=== PATIENT | female | born 1930 | race Caucasian/White ===

== ENCOUNTER 2016-11-09 10:57 | Outpatient (CLI) ==
[2014-07-03 21:13] VITALS: BMI 23.4
[2016-11-09 13:58] LABS: BASOPHILS # (AUTO) 0.1 K/uL (0-0.2); BASOPHILS % (AUTO) 1.8 % (0.0-3.0); EOSINOPHILS # (AUTO) 0.1 K/ul (0.0-0.7); HEMATOCRIT 36.7 % (37.0-47.0); IMMATURE GRANULOCYTE % (AUTO) 0.5 % (0.0-5.0); LYMPHOCYTES # (AUTO) 1.2 K/uL (0.60-3.4); LYMPHOCYTES % (AUTO) 26.8 (10.0-50.0); MEAN CORPUSCULAR HEMOGLOBIN 30.2 pg (27.0-31.0); MEAN CORPUSCULAR HGB CONC 32.7 (31.8-35.4); MEAN CORPUSCULAR VOLUME 92.2 fl (81.0-99.0); MONOCYTES # (AUTO) 0.4 K/uL (0.4-2.0); MONOCYTES % (AUTO) 9.3 (0-10); NEUTROPHILS # (AUTO) 2.6 K/ul (2.0-6.9); NEUTROPHILS % (AUTO) 59.6; PLATELET COUNT 274 10^3/uL (140-440); RED BLOOD COUNT 3.98 10^6/ul (4.20-5.40); WHITE BLOOD COUNT 4.41 K/ul (4.6-10.2)
[2016-11-09 14:02] LABS: BILIRUBIN,URINE Negative (NEGATIVE); KETONES,URINE Negative (NEGATIVE); LEUKOCYTE ESTERASE ,URINE 1+ (NEGATIVE); NITRITE,URINE Negative (NEGATIVE); PH,URINE 8.5 (5-9); PROTEIN,URINE Negative (NEGATIVE); URINE, BLOOD Trace-intact (NEGATIVE)
[2016-11-09 14:04] LABS: ADD URINE MICROSCOPIC YES
[2016-11-09 14:10] LABS: BACTERIA,URINE TRACE (NOT PRESENT)
[2016-11-09 15:19] LABS: ALBUMIN 3.7 g/dL (3.4-5.0); ALBUMIN/GLOBULIN RATIO 1.23; ANION GAP 12.9; BILIRUBIN,TOTAL 0.69 mg/dL (0.00-1.20); BUN/CREATININE RATIO 11.22; CALCIUM 9.1 mg/dL (8.2-10.2); CREATININE 0.98 mg/dL (0.60-1.30); POTASSIUM 3.9 mmol/L (3.5-5.10); TOTAL PROTEIN 6.7 g/dL (5.8-8.1)
== END 2016-11-09 10:58 | disposition home or self-care (01) ==
LOC: LAB 10:57
PROVIDERS: ATTEND General Practice
DX: I48.91 Unspecified atrial fibrillation (principal); E78.5 Hyperlipidemia, unspecified; D64.9 Anemia, unspecified; R31.29 Other microscopic hematuria; Z79.899 Other long term (current) drug therapy
CPT/HCPCS: 36415; 80053; 80061; 81001; 85025; 87086

== ENCOUNTER 2017-11-12 12:52 | Outpatient (CLI) ==
[2014-07-03 21:13] VITALS: BMI 23.4
== END 2017-11-12 12:53 | disposition home or self-care (01) ==
LOC: FCC-LAB 12:52
PROVIDERS: ATTEND General Practice
DX: I48.91 Unspecified atrial fibrillation (principal); E78.5 Hyperlipidemia, unspecified; Z79.899 Other long term (current) drug therapy
CPT/HCPCS: 36415; 80053; 80061; 81001; 85025; 87086

== ENCOUNTER 2018-03-29 10:54 | Outpatient (CLI) ==
[2014-07-03 21:13] VITALS: BMI 23.4
== END 2018-03-29 10:55 | disposition home or self-care (01) ==
LOC: FCC-LAB 10:54
PROVIDERS: ATTEND General Practice
DX: E78.5 Hyperlipidemia, unspecified (principal); I48.91 Unspecified atrial fibrillation; D64.9 Anemia, unspecified; Z79.899 Other long term (current) drug therapy
CPT/HCPCS: 36415; 80053; 80061; 81001; 85025

== ENCOUNTER 2018-10-04 11:09 | Outpatient (CLI) ==
[2014-07-03 21:13] VITALS: BMI 23.4
== END 2018-10-04 11:10 | disposition home or self-care (01) ==
LOC: RHC-LAB 11:09
PROVIDERS: ATTEND General Practice
DX: Z00.00 Encounter for general adult medical examination without abnormal findings (principal); D64.9 Anemia, unspecified; E78.5 Hyperlipidemia, unspecified; Z79.899 Other long term (current) drug therapy
CPT/HCPCS: 36415; 80053; 80061; 81001; 84443; 85025

== ENCOUNTER 2018-10-10 09:16 | Outpatient (CLI) ==
[2014-07-03 21:13] VITALS: BMI 23.4
--- NOTE | 2018-10-11 09:50 | MAMMO ---
EXAM: Digital screening mammogram with tomosynthesis HISTORY: Screening COMPARISON: 04/12/2016 FINDINGS: Digital MLO and CC views of the right and left breast were performed. Tomosynthesis was performed. Computer aided detection utilized. There are scattered fibroglandular densities. There are benign appearing bilateral calcifications. There is no evidence for mass, asymmetry, distortion, or suspicious calcifications in either breast. IMPRESSION: 1. No evidence of malignancy in the right or left breast. 2. Annual screening mammogram is recommended in one year. BIRADS category 2, benign
== END 2018-10-10 09:17 | disposition home or self-care (01) ==
LOC: RAD 09:16
PROVIDERS: ATTEND General Practice
DX: Z12.31 Encounter for screening mammogram for malignant neoplasm of breast (principal)

== ENCOUNTER 2019-04-21 12:52 | Inpatient (IN) ==
[2019-04-21] MEDS ORDERED: DUONEB NEB STA (14:19)
[2019-04-21] MEDS ORDERED: LEVAQUIN 500 MG/100 ML D5W 500 MG/100 ML BAG IV STA (14:35)
--- NOTE | 2019-04-21 15:38 | CT ---
Exam: CT of the chest without intravenous contrast. Comparison: 07/04/2014. Reason for exam: Pneumonia. FINDINGS: Consolidation in the right mid lung with air bronchograms and surrounding ground-glass [place] cities with nodularity. Ground-glass nodularity is seen in the left hilar region. There is nodular appearing ground-glass in both left and right lung base is measuring up to 1.7 cm as seen on coronal image number 59. No pneumothorax is seen. Left basilar atelectasis/pneumonia with a small effusion. Image interpretation is limited by the lack of intravenous contrast. The heart is not enlarged. The aorta is normal in course and caliber. Old granulomas disease is seen within the mediastinum. Atherosclerotic disease within the aorta and distal arterial vasculature including the coronary vesse ls. Small hiatal hernia. No suspicious appearing osteoblastic or osteolytic lesion. Impression: 1. Partially evaluated ground-glass nodularity and both lung bases and the left hilar region. These findings can be seen with infection, inflammation, and neoplasia. Follow-up imaging is recommended. 2. Consolidation in the right middle lobe with air bronchograms. Findings can be seen with lobar co llapse, infection, inflammation, and neoplasia. Recommend clinical correlation. 3. Small hiatal hernia
--- NOTE | 2019-04-21 17:15 | ED.PDOC ---
General ED Provider: Dr. ELIZA ABDALLA Chief Complaint: Respiratory Complaint Stated Complaint: pneumonia right lung Time Seen by Physician: 13:00 Mode of Arrival: Wheelchair Information Source: Patient Exam Limitations: No limitations Primary Care Provider: REHAN CURIELBRYN [facility] Nursing and Triage Documentation Reviewed and Agree: Yes Does patient meet sepsis criteria?: Yes If yes, has appropriate treatment been initiated?: Yes System Inflammatory Response Syndrome: Temp 101F or Greater and Pulse >90 BPM Sepsis Protocol: For patient's 13 years and over: Temp is 96.8 and below OR 101 and greater Pulse >90 BPM Resp >20/minute Acutely Altered Mental Status Are patient's symptoms suggestive of a new infection, such as: -Pneumonia -Skin, Soft Tissue -Endocarditis -UTI -Bone, Joint Infection -Implantable Device -Acute Abdominal Infection -Wound Infection -Meningitis -Blood Stream Catheter Infection -Unknown Respiratory Complaint Exam Respiratory Complaint/Exam Onset/Duration: 1 day Symptoms Are: Still present Timing: Constant Initial Severity: Mild Current Severity: Mild Location: Nose, Throat and Chest Character: Reports Non-productive cough and Dry cough Aggravating: Reports None Alleviating: Reports None Related Surgical History: Reports None Pulmonary Embolism Risk Factors: None and Bedrest Cardiac Risk Factors: Reports None Pseudomonas Risk Factors: Reports None Status Asthmaticus Risk Factors: Reports None Home Oxygen Use: No Recent Stress Test: No Recent Echo/LV Function: No Current Antibiotic Use: No Current Asthma Medication Use: No Respiratory Distress: None Inadequate Respiratory Effort: No Dysphagia Present: No Stridor Present: No JVD Present: No Accessory Muscle Use: No Retractions: Not Present Diminished Breath Sounds: No Sinus Tenderness: None Grunting Respirations: No Kussmaul Respirations: No Differential Diagnoses: Foreign body, Asthma, CHF, Pulmonary Edema, COPD Exacerbation, Pneumonia, Bronchitis, URI and Aspiration Review of Systems Review Of Systems Constitutional: Reports Malaise, Weakness and Loss of appetite Eyes: Reports No symptoms Ears, Nose, Mouth, Throat: Reports No symptoms Respiratory: Reports No symptoms and Cough Cardiac: Reports No symptoms GI: Reports No symptoms : Reports No symptoms Musculoskeletal: Reports No symptoms Skin: Reports No symptoms Neurological: Reports No symptoms Endocrine: Reports No symptoms Hematologic/Lymphatic: Reports No symptoms All Other Systems: Reviewed and Negative [facility] Medical History A-fib Cataract Hemorrhoids Family History 33 FATHER Cerebrovascular accident BROTHER Lung cancer BROTHER Cerebrovascular accident Physical Exam Physical Exam Appearance: Well-appearing, No pain distress and Well-nourished Eyes: RAY, EOMI and Conjunctiva clear ENT: Ears normal, Nose normal and Oropharynx normal Respiratory: Airway patent, Breath sounds diminished (right lung), Respirations nonlabored and Rhonchi Cardiovascular: RRR, Pulses normal, No rub and No murmur GI/: Soft, Nontender, No masses, Bowel sounds normal and No Organomegaly Musculoskeletal: Normal strength, ROM intact, No edema and No calf tenderness Skin: Warm, Dry and Normal color Neurological: Sensation intact, Motor intact, Reflexes intact, Cranial nerves intact, Alert and Oriented Psychiatric: Affect appropriate and Mood appropriate Interpretation Radiology Interpretation Radiology Interpretation By: Radiologist Exam Interpreted: CT Scan Xray Comments: pneumonia vs neoplastic process Nurse Rn [place] Rate: Tachy Rhythm: Sinus EKG Interpretation Rate: Tachy Rhythm: Sinus Ectopy: PVCs [place]: NL ST Segment: Normal Re-Evaluation Re-Evaluation Time of Re-Evaluation: 15:00 Status: Improved Vital Signs Stable: Yes Pain Level: 0 Appearance: NAD Lungs: Clear Skin: Warm and Dry Neuro: Alert and Oriented X3 CV: RRR Re-Evaluation Time of Re-Evaluation: 17:08 Status: Improved Vital Signs Stable: Yes Pain Level: 0 Appearance: NAD Skin: Warm and Dry Neuro: Alert and Oriented X3 CV: RRR Additional Comments: no acute resp event while in the E/D Physician Notification Case Discussed Physician Notified: PMD Time of Notification: 17:10 (ADMITT TO [facility] WITH PNEUMONIA) Critical Care Note Critical Care Note Total Time (mins): 0 Course Course Hematology/Chemistry: 04/21/19 14:32 04/21/19 14:32 Orders, Labs, Meds: Lab Review 04/21/19 04/21/19 04/21/19 14:31 14:32 14:32 WBC 14.93 H RBC 3.79 L Hgb 11.4 L Hct 33.9 L MCV 89.4 MCH 30.1 MCHC 33.6 RDW Coeff of Hannah 13.0 Plt Count 238 Immature Gran % (Auto) 1.1 Neut % (Auto) 88.2 Lymph % (Auto) 4.3 L [place] % (Auto) 6.2 Eos % (Auto) 0.0 Baso % (Auto) 0.2 Immature Gran # (Auto) 0.2 Neut # (Auto) 13.2 H Lymph # (Auto) 0.6 [place] # (Auto) 0.9 Eos # (Auto) 0.0 Baso # (Auto) 0.0 Puncture Site Rbrach O2 Saturation 93.0 L ABG pH 7.451 H ABG pCO2 30.9 L ABG pO2 62.0 L ABG HCO3 21.5 L ABG Total CO2 22 ABG Base Excess -2 FiO2 % 21.0 Sodium 131.5 L Potassium 3.74 Chloride 100.4 Carbon Dioxide 23.1 Anion Gap 11.74 BUN 16.5 Creatinine 0.85 Estimated GFR (MDRD) 63.00 BUN/Creatinine Ratio 19.41 Glucose 122.2 H Lactic Acid Calcium 8.72 Total Bilirubin 1.03 AST 23.5 ALT 12.8 Alkaline Phosphatase 86.0 Total Protein 7.13 Albumin 3.94 Globulin 3.19 Albumin/Globulin Ratio 1.23 Procalcitonin Urine Color Urine Clarity Urine pH Ur Specific [place] Urine Protein Urine Glucose (UA) Urine Ketones Urine Blood Urine Nitrite Urine Bilirubin Urine Urobilinogen Ur Leukocyte Esterase Urine Microscopic RBC Urine Microscopic WBC Ur Squamous Epith Cells Urine Bacteria Granular Casts 04/21/19 04/21/19 04/21/19 14:32 14:32 14:55 WBC RBC Hgb Hct MCV MCH MCHC RDW Coeff of Hannah Plt Count Immature Gran % (Auto) Neut % (Auto) Lymph % (Auto) [place] % (Auto) Eos % (Auto) Baso % (Auto) Immature Gran # (Auto) Neut # (Auto) Lymph # (Auto) [place] # (Auto) Eos # (Auto) Baso # (Auto) Puncture Site O2 Saturation ABG pH ABG pCO2 ABG pO2 ABG HCO3 ABG Total CO2 ABG Base Excess FiO2 % Sodium Potassium Chloride Carbon Dioxide Anion Gap BUN Creatinine Estimated GFR (MDRD) BUN/Creatinine Ratio Glucose Lactic Acid 0.68 L Calcium Total Bilirubin AST ALT Alkaline Phosphatase Total Protein Albumin Globulin Albumin/Globulin Ratio Procalcitonin 0.62 Urine Color Yellow Urine Clarity Clear Urine pH 6.0 Ur Specific [place] 1.025 Urine Protein 2+ Urine Glucose (UA) Negative Urine Ketones 2+ Urine Blood 2+ Urine Nitrite Negative Urine Bilirubin Negative Urine Urobilinogen 1.0 Ur Leukocyte Esterase Negative Urine Microscopic RBC 0-2 Urine Microscopic WBC 5-10 Ur Squamous Epith Cells Not present Urine Bacteria 1+ Granular Casts 0-2 Orders Category Date Time Status ABG DRAW REQUEST Stat CARDIO 04/21/19 14:31 Completed EKG-(ED ONLY) Stat CARDIO 04/21/19 14:21 Completed NEBULIZER TREATMENT Stat CARDIO 04/21/19 14:19 Completed ED APPLY O2 .ONCE EMERGENCY 04/21/19 14:16 Active ED UNIVERSITY LIBRARIAN APPLIED .ONCE EMERGENCY 04/21/19 14:16 Active ABG Stat LAB 04/21/19 14:31 Completed BLOOD CULTURE Stat LAB 04/21/19 15:20 Received CBC W/ AUTO DIFF Stat LAB 04/21/19 14:32 Completed COMPREHENSIVE METABOLIC PANEL Stat LAB 04/21/19 14:32 Completed LACTIC ACID Stat LAB 04/21/19 14:32 Completed PROCALCITONIN Stat LAB 04/21/19 14:32 Completed URINALYSIS C & S IF INDICATED Stat LAB 04/21/19 14:55 Completed URINE CULTURE Stat LAB 04/21/19 15:52 Received Ipratropium/Albuterol Neb [Duoneb] MEDS 04/21/19 14:19 Discontinued 3 ml NEB ONCE STA Levofloxacin/D5w [Levaquin 500 mg/100 ml D5w] MEDS 04/21/19 14:35 Discontinued 500 mg in [address] CHEST W/O CONTRAST Stat RADS 04/21/19 14:31 Completed Medications Discontinued Medications Generic Name Dose Route Start Last Admin Trade Name Freq PRN Reason Stop Dose Admin Albuterol/Ipratropium 3 ml 04/21/19 14:19 04/21/19 14:39 Duoneb NEB 04/21/19 14:20 3 ml ONCE STA Administration Levofloxacin/Dextrose 500 mg in 100 mls @ 100 mls/hr 04/21/19 14:35 04/21/19 15:32 Levaquin 500 Mg/100 Ml D5w IV 04/21/19 15:34 100 mls/hr ONCE STA Administration Vital Signs: Temp Pulse Resp BP Pulse Ox 04/21/19 12:53 101.7 F H 122 H 22 154/71 H 91 L Discharge Plan Discharge Patient Disposition: ADMITTED INPATIENT ED Provider: ELIZA ABDALLA Condition: Good
[2019-04-21] MEDS ORDERED: SODIUM CHLORIDE 1,000 ML IV SCH (17:30)
[2019-04-21] MEDS ORDERED: DUONEB NEB SCH ×2 (18:00→20:00)
[2019-04-21] MEDS: TUSSIONEX PO PRN (19:21)
[2019-04-21 20:14] VITALS: BMI 22.4
[2019-04-21] MEDS ORDERED: INFUVITE ADULT 10 ML in D5%-1/2NS-KCL 20 MEQ/L IV SOL 1,000 ML IV SCH (22:00)
[2019-04-21] MEDS ORDERED: INFUVITE ADULT IV ONE (22:46)
[2019-04-21] MEDS: MUCINEX PO SCH (23:03)
[2019-04-22] MEDS: INFUVITE ADULT 10 ML in D5%-1/2NS-KCL 20 MEQ/L IV SOL 1,000 ML IV SCH ×2 (00:53→13:41)
[2019-04-22] MEDS: TUSSIONEX PO PRN ×2 (08:34→21:05)
[2019-04-22] MEDS: MUCINEX PO SCH ×2 (08:34→21:05)
--- NOTE | 2019-04-22 08:41 | PCM.CONS ---
CONSULTING PROVIDER: Dr. RACHEAL ROBIN ATTENDING PROVIDER: Dr. REHAN [facility]ODD-[facility] DATE OF SERVICE: 04/22/19 SUBJECTIVE: This 89 year old /WHITE F was hospitalized 04/21/19. The patient was seen in consultation. The patient has acute bronchitis with severe chronic lung disease, cough and congestion. No symptoms of CHF noted. ABGs - sat 93, pH good, pc02 30, p02 62. The patient is constantly coughing with productive cough to some extent. REVIEW OF SYSTEMS: CONSTITUTIONAL: No night sweats. No fatigue, malaise, lethargy. No fever or chills. HEENT: Eyes: No visual changes. No eye pain. No eye discharge. ENT: No runny nose. No epistaxis. No sinus pain. No odynophagia. No congestion. RESPIRATORY: Positive for cough and congestion. No hemoptysis. No shortness of breath. CARDIOVASCULAR: No angina symptoms. No CHF symptoms. No atypical chest pain for CAD. No palpitations. No orthopnea. GASTROINTESTINAL: No abdominal pain. No nausea or vomiting. No diarrhea or constipation. No hematemesis. No hematochezia. GENITOURINARY: No urgency. No frequency. No dysuria. No hematuria. No obstructive symptoms. No discharge. No pain. No significant abnormal bleeding. MUSCULOSKELETAL: No musculoskeletal pain; no joint swelling. NEUROLOGICAL: Awake, seems to be alert, oriented to time, place and person. No headache. No neck pain. No syncope. No seizures. No dizziness. PSYCHIATRIC: Not anxious. No depression. No suicidal thoughts. No homicidal thou ghts. SKIN: No rash. No lesions. No wounds. ENDOCRINE: No unexplained weight loss. No weight gain. HEMATOLOGIC/LYMPHATIC: No anemia. No purpura. No petechiae. No prolonged or excessive bleeding. No palpable lymph nodes. PHYSICAL EXAMINATION: GENERAL: The patient is awake, alert and oriented, lying/sitting in bed in no distress. VITAL SIGNS: Temperature 98.5 F, Pulse 97, Respiratory Rate 20, BP 131/72, Pulse Ox 97% HEENT: Head normocephalic, atraumatic. Eyes: Extraocular muscles are intact. Pupils are equal, round and reactive to light and accommodation. Ears: No lesions. Nose appeared normal. Throat: No exudate or erythema. NECK: Supple. No JVD, no carotid bruit. No lymphadenopathy or thyromegaly. LUNGS: Few expiratory wheezes bilaterally. Clear to auscultation. Percussion note normal. Chest symmetrical. HEART: S1, S2, no S3. No murmurs. No cyanosis or clubbing. No ascites. Pulses: Dorsalis pedis and posterior tibial pulses +1 to +2 both sides. ABDOMEN: Soft. Non-tender. Bowel sounds active. No CVA tenderness. No mass felt. EXTREMITIES: Trace edema. Full range of motion of all extremities, equal. NEUROLOGIC: No focal deficit. Cranial nerves II through XII are grossly intact. No headache, no double vision or headache. SKIN: Warm and dry. Intact. Turgor-normal. LYMPHATIC: No palpable lymph nodes/no lymphedema. MUSCULOSKELETAL: Normal joints with no swelling. Muscle tone is normal. LAB REVIEW: 04/22/19 05:01 04/22/19 05:01 04/22/19 05:01: Sodium 132.3 L, Potassium 3.78, Chloride 99.3, Carbon Dioxide 26.3, Anion Gap 10.48, BUN 16.3, Creatinine 0.96, Estimated GFR (MDRD) 55.00, BUN/Creatinine Ratio 16.97, Glucose 151.0 H, Calcium 8.56, Total Bilirubin 1.02, AST 20.6, ALT 12.0, Alkaline Phosphatase 70.5, Total Protein 6.50, Albumin 3.44 L, Globulin 3.06, Albumin/Globulin Ratio 1.12 04/22/19 05:01: WBC 12.83 H, RBC 3.45 L, Hgb 10.1 L, Hct 31.5 L, MCV 91.3, MCH 29.3, MCHC 32.1, RDW Coeff of [place] 13.2, Plt Count 259, Immature Gran % (Auto) 0.8, Neut % (Auto) 86.9, Lymph % (Auto) 6.3 L, [place] % (Auto) 5.7, Eos % (Auto) 0.1, Baso % (Auto) 0.2, Immature Gran # (Auto) 0.1, Neut # (Auto) 11.2 H, Lymph # (Auto) 0.8, [place] # (Auto) 0.7, Eos # (Auto) 0.0, Baso # (Auto) 0.0 04/21/19 14:55: Urine Color Yellow, Urine Clarity Clear, Urine pH 6.0, Ur Specific [place] 1.025, Urine Protein 2+, Urine Glucose (UA) Negative, Urine Ketones 2+, Urine Blood 2+, Urine Nitrite Negative, Urine Bilirubin Negative, Urine Urobilinogen 1.0, Ur Leukocyte Esterase Negative, Urine Microscopic RBC 0- 2, Urine Microscopic WBC 5-10, Ur Squamous Epith Cells Not present, Urine Bacteria 1+, Granular Casts 0-2 04/21/19 14:32: NT-Pro-B Natriuret Pep 1230.000 H 04/21/19 14:32: Lactic Acid 0.68 L 04/21/19 14:32: Procalcitonin 0.62 04/21/19 14:32: Sodium 131.5 L, Potassium 3.74, Chloride 100.4, Carbon Dioxide 23.1, Anion Gap 11.74, BUN 16.5, Creatinine 0.85, Estimated GFR (MDRD) 63.00, BUN/Creatinine Ratio 19.41, Glucose 122.2 H, Calcium 8.72, Total Bilirubin 1.03, AST 23.5, ALT 12.8, Alkaline Phosphatase 86.0, Total Protein 7.13, Albumin 3.94, Globulin 3.19, Albumin/Globulin Ratio 1.23 04/21/19 14:32: WBC 14.93 H, RBC 3.79 L, Hgb 11.4 L, Hct 33.9 L, MCV 89.4, MCH 30.1, MCHC 33.6, RDW Coeff of [place] 13.0, Plt Count 238, Immature Gran % (Auto) 1.1, Neut % (Auto) 88.2, Lymph % (Auto) 4.3 L, [place] % (Auto) 6.2, Eos % (Auto) 0.0, Baso % (Auto) 0.2, Immature Gran # (Auto) 0.2, Neut # (Auto) 13.2 H, Lymph # (Auto) 0.6, [place] # (Auto) 0.9, Eos # (Auto) 0.0, Baso # (Auto) 0.0 04/21/19 14:31: Puncture Site Rbrach, O2 Saturation 93.0 L, ABG pH 7.451 H, ABG pCO2 30.9 L, ABG pO2 62.0 L, ABG HCO3 21.5 L, ABG Total CO2 22, ABG Base Excess -2, FiO2 % 21.0 CT of the chest without intravenous contrast revealed partially evaluated ground glass nodularity and both lung bases and the left hilar region. These findings can be seen with infection, inflammation and neoplasia. Followup imaging is recommended. Consolidation in the right middle lobe with air bronchograms. Findings can be seen with lobar collapse, infection, inflammation and neoplasia. Recommend clinical correlation. Small hiatal hernia. ASSESSMENT: 1. Acute bronchitis with chronic lung disease. 2. No evidence of CHF at the present time. 3. Sinus tachycardia could be from fever and bronchitis. RECOMMENDATIONS/PLAN: 1. Xopenex q.i.d. 2. Decadron 1 cc now and 1 cc in a.m. 3. Continue antibiotics. 4. Will do echocardiogram to evaluate LV function. 5. BNP approximately 1000 is noted. Plan and coordination of the patient's care discussed in the presence of Rug Dyer Helper and Nurse. CONDITION: Stable SCRIBED BY: BAYRON SMITH Hardboard Coating Machine Operator scribed while in presence of service performed by Dr. RACHEAL ROBIN on 04/22/19 ([id number])
[2019-04-22] MEDS ORDERED: DECADRON 4 MG/ML SDV IM STA (09:02)
[2019-04-22] MEDS: XOPENEX 1.25 MG NEB SCH ×3 (11:08→23:45)
[2019-04-22] MEDS ORDERED: INFUVITE ADULT IV ONE (12:41)
[2019-04-22] MEDS: MOXIFLOXACIN 400 MG/250 ML IV SCH (12:46)
[2019-04-22] MEDS: SODIUM CHLORIDE IV SCH (12:46)
[2019-04-23] MEDS: XOPENEX 1.25 MG NEB SCH ×4 (04:55→23:05)
[2019-04-23] MEDS ORDERED: INFUVITE ADULT IV ONE (06:07)
[2019-04-23] MEDS: INFUVITE ADULT 10 ML in D5%-1/2NS-KCL 20 MEQ/L IV SOL 1,000 ML IV SCH ×2 (06:13→07:55)
[2019-04-23] MEDS ORDERED: DECADRON 4 MG/ML SDV IM ONE (09:00)
[2019-04-23] MEDS: MOXIFLOXACIN 400 MG/250 ML IV SCH (10:00)
[2019-04-23] MEDS: SODIUM CHLORIDE IV SCH (10:00)
[2019-04-23] MEDS: MUCINEX PO SCH ×2 (10:00→23:04)
--- NOTE | 2019-04-23 11:10 | PCM.CONS ---
CONSULTING PROVIDER: Dr. RACHELA ROBIN ATTENDING PROVIDER: Dr. REHAN DODD-[facility] DATE OF SERVICE: 04/23/19 SUBJECTIVE: This 89 year old /WHITE F was hospitalized 04/21/19. The patient is seen in consultation because of elevated BNP. The patient looks better, still coughing and congested. Saturation 98% with 2L in no distress. She talks without any difficulties except for coughing bouts intermittently. REVIEW OF SYSTEMS: CONSTITUTIONAL: No night sweats. No fatigue, malaise, lethargy. No fever or chills. HEENT: Eyes: No visual changes. No eye pain. No eye discharge. ENT: No runny nose. No epistaxis. No sinus pain. No odynophagia. No congestion. RESPIRATORY: Cough and congestion. No hemoptysis. No shortness of breath. CARDIOVASCULAR: No angina symptoms. No CHF symptoms. No atypical chest pain for CAD. No palpitations. No orthopnea. GASTROINTESTINAL: No abdominal pain. No nausea or vomiting. No diarrhea or constipation. No hematemesis. No hematochezia. GENITOURINARY: No urgency. No frequency. No dysuria. No hematuria. No obstructive symptoms. No discharge. No pain. No significant abnormal bleeding. MUSCULOSKELETAL: No musculoskeletal pain; no joint swelling. NEUROLOGICAL: Awake, alert, oriented to time, place and person. No headache. No neck pain. No syncope. No seizures. No dizziness. PSYCHIATRIC: Not anxious. No depression. No suicidal thoughts. No homicidal thoughts. SKIN: No rash. No lesions. No wounds. ENDOCRINE: No unexplained weight loss. No weight gain. HEMATOLOGIC/LYMPHATIC: No anemia. No purpura. No petechiae. No prolonged or excessive bleeding. No palpable lymph nodes. PHYSICAL EXAMINATION: GENERAL: The patient is awake, alert and oriented, lying/sitting in bed in no distress. VITAL SIGNS: Temperature 98.6 F, Pulse 102, Respiratory Rate 18, BP 135/77, Pulse Ox 98% HEENT: Head normocephalic, atraumatic. Eyes: Extraocular muscles are intact. Pupils are equal, round and reactive to light and accommodation. Ears: No lesions. Nose appeared normal. Throat: No exudate or erythema. NECK: Supple. No JVD, no carotid bruit. No lymphadenopathy or thyromegaly. LUNGS: Clear to auscultation. Percussion note normal. Chest symmetrical. HEART: S1, S2, no S3. No murmurs. No cyanosis or clubbing. No ascites. Pulses: Dorsalis pedis and posterior tibial pulses +2 both sides. ABDOMEN: Soft. Non-tender. Bowel sounds active. No CVA tenderness. No mass felt. EXTREMITIES: No edema. Full range of motion of all extremities, equal. NEUROLOGIC: No focal deficit. Cranial nerves II through XII are grossly intact. No headache, no double vision or headache. SKIN: Warm and dry. Intact. Turgor-normal. LYMPHATIC: No palpable lymph nodes/no lymphedema. MUSCULOSKELETAL: Normal joints with no swelling. Muscle tone is normal. LAB REVIEW: 04/23/19 04:40 04/23/19 04:40 04/23/19 04:40: Sodium 136.4, Potassium 4.42, Chloride 107.8 H, Carbon Dioxide 22.3, Anion Gap 10.72, BUN 17.2 H, Creatinine 0.81, Estimated GFR (MDRD) 67.00, BUN/Creatinine Ratio 21.23, Glucose 148.8 H, Calcium 8.53, Total Bilirubin 0.53, AST 22.2, ALT 14.0, Alkaline Phosphatase 65.9, Total Protein 6.60, Albumin 3.43 L, Globulin 3.17, Albumin/Globulin Ratio 1.08 04/23/19 04:40: WBC 14.36 H, RBC 3.55 L, Hgb 10.6 L, Hct 33.1 L, MCV 93.2, MCH 29.9, MCHC 32.0, RDW Coeff of [place] 13.2, Plt Count 261, Immature Gran % (Auto) 1.0, Neut % (Auto) 91.2, Lymph % (Auto) 2.5 L, [place] % (Auto) 5.2, Eos % (Auto) 0.0, Baso % (Auto) 0.1, Immature Gran # (Auto) 0.1, Neut # (Auto) 13.1 H, Lymph # (Auto) 0.4 L, [place] # (Auto) 0.7, Eos # (Auto) 0.0, Baso # (Auto) 0.0 ASSESSMENT: 1. Acute bronchitis, possibility of asthma. 2. Anemia. 3. Cardiovascular status stable. No evidence of CHF or coronary insufficiency. RECOMMENDATIONS/PLAN: 1. Echocardiogram to evaluate LV function. 2. I agree with present management of pneumonia/pneumonitis. 3. 1 cc Decadron. Plan and coordination of the patient's care discussed in the presence of Hvac Operations Technician and Nurse. CONDITION: STABLE SCRIBED BY: BAYRON SMITH Six Color Press Operator scribed while in presence of service performed by Dr. RACHEAL ROBIN on 04/23/19 ([id number])
--- NOTE | 2019-04-23 14:45 | HP ---
DATE OF SERVICE: 04/21/19 CHIEF COMPLAINT: Cough persistent and pneumonia by x-ray at [facility]. HISTORY OF PRESENT ILLNESS: The patient had cough over several weeks and worsening in the last two days prompting U[facility] visit at [facility]. The patient had a chest x-ray showing pneumonitis of the right middle lobe. He also had some tachycardia with a rate of 115 to 118 according to . He recommend the patient been seen or go the emergency room and the patient as well as the daughter elected to come to [place] and so the patient was then directed to come to [facility]. The emergency room did call the office whether the patient is a direct admit and I told them that this patient needed to go through the emergency room processes and be examined and tested. There had been no testing done at Urgent Care except a chest x-ray showing a right middle lobe pneumonia. The patient also had tachycardia and I had communicated this to the nurse and including the doctor at the emergency room, Dr. Gilman. The patient had a chest CT noncontrast at the emergency room showing the right middle lobe pneumonia and other findings which needs to be followed. The patient's arterial blood gasses, Oxygen saturation 93, pH 7.451, pCO2 30.9, pO2 62, HCO3 21, total CO2 22, base excess -2 and FiO2 21%. Chemistries slightly abnormal 131.5 sodium, blood sugar 122.2, lactic acid 0.68 normal, PROBNP 1,230, slightly above previous number of 997 last February 06, 2019. The patient was given 500mg of Levofloxacin in the emergency room. The patient had some reaction to Cefdinir. Vital signs on admission 101.7 tympanic temperature, pulse 122, blood pressure 154/71, respiratory rate 22 and oxygen saturation 91 at room air. PAST MEDICAL HISTORY/PAST SURGICAL HISTORY: The patient had some cardiac arrhythmia Hemorrhoid, operated Cataract surgery Total abdominal hysterectomy FAMILY HISTORY: Father had CVA and Brother had lung carcinoma and another brother had CVA SOCIAL HISTORY: The patient is and resides by herself, self sufficient with a very good family support. MEDICATIONS: No prescribed medications ALLERGIES: Some reactions to Cefdinir, could not remember the reaction and this will be checked with the daughter Silvia. REVIEW OF SYSTEMS: CONSTITUTIONAL: The patient has fever but no chills and fatigue. 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 No syncopal episode, No seizure disorders or disturbances or episodes. VISUAL: Denies any double or loss of vision. AUDITORY: The patient is hard of hearing. You have to shout it up to her ears. She does understands and answers questions correctly when she understands or hears it. RESPIRATORY: The patient has cough and slightly tachypneic with fever. No hemoptysis. CARDIOVASCULAR: Denies any oppressive chest pain or diaphoresis. The patient has some weakness but generalized secondary to the fever and repetitive. GI: Appetite is poor. Denies any dysphagia or abdominal pain or diarrhea. : Denies any pain on urination. This patient does have stress incontinence. MUSCULOSKELETAL: The patient has generalized weakness but no significant joint problems and no joint swelling or pain. INTEGUMENT: Denies any rash or pruritus. ENDOCRINE: Negative HEMATOLOGY: No history of prolonged bleeding or spontaneous bleeding. PSYCHIATRIC: Affect is normal. PHYSICAL EXAMINATION: GENERAL: 89 year old female admitted to the hospital because of fever and right middle lobe pneumonia. The patient is alert and oriented, no cyanotic. Not dyspneic. The patient has movement of all extremities and answers the questions correctly if she hears it. The patient has significant hearing loss. VITAL SIGNS: Temperature 101.7, pulse 122, blood pressure 154/71, respiratory rate 22, oxygen saturation at room air 91. HEAD: Unremarkable. Scalp has no active Dermatitis FACE: No facial weakness. No redness. No tenderness in the frontal and maxillary sinus areas to palpation under pressure. NECK: No masses. No adenopathies. No remarkably tenderness. No bruit. CHEST: Essentially symmetrical and equal. LUNGS: Rales on both lung yeung. Still wheezing. HEART: Audible, irregular and slightly tachycardic. No murmurs ABDOMEN: Soft with no remarkable tenderness. No guarding. Bowel sounds are active. No masses palpable and no bruit. EXTERNAL GENITALIA: Not examined RECTAL: Not performed LOWER EXTREMITIES: Symmetrical and equal with no significant edema. UPPER EXTREMITIES: Symmetrical and equal ASSESSMENT: 1. Right middle lobe pneumonitis nodular densities bilateral basal, 1.7cm largest diameter maybe also pneumonitis 2. Cardiac arrhythmia. TIME SPENT: GREATER THAN 65 MINUTES MTDD
[2019-04-23] MEDS ORDERED: DOXY-100 100 MG in SODIUM CHLORIDE 100 ML IV SCH (21:00)
[2019-04-23] MEDS ORDERED: HALDOL IM STA (21:17)
[2019-04-24] MEDS: INFUVITE ADULT 10 ML in D5%-1/2NS-KCL 20 MEQ/L IV SOL 1,000 ML IV SCH ×2 (01:33→16:34)
[2019-04-24] MEDS: XOPENEX 1.25 MG NEB SCH ×3 (05:02→16:31)
[2019-04-24] MEDS: DOXYCYCLINE HYCLATE PO SCH ×2 (09:27→21:41)
[2019-04-24] MEDS: MUCINEX PO SCH ×2 (09:27→21:42)
--- NOTE | 2019-04-24 09:54 | CONS ---
DATE OF CONSULTATION: 04/22/19 REASON FOR CONSULTATION: Tachycardia. HISTORY OF PRESENT ILLNESS: 89-year-old White/ female with persistent cough for three weeks; unsure if fever. The patient went to [facility] in [place] and was told she had pneumonia. Advised to go to ER. She came back to [place] [facility]. She had fever in the ER of 101.7, heart rate 120's. REVIEW OF SYSTEMS: CONSTITUTIONAL: Positive for fever and fatigue. No night sweats. No malaise, lethargy. No chills. HEENT: Eyes: No visual changes. No eye pain. No eye discharge. ENT: No sinus drainage. No epistaxis. No sinus pain. No sore throat. No odynophagia. No ear pain. No congestion. RESPIRATORY: Positive for cough. No hemoptysis. No shortness of breath. CARDIOVASCULAR: No angina symptoms. No CHF symptoms. No atypical chest pain for CAD. No palpitations. No orthopnea. GASTROINTESTINAL: No abdominal pain. No nausea or vomiting. No diarrhea or constipation. No hematemesis. No hematochezia. GENITOURINARY: No urgency. No frequency. No dysuria. No hematuria. No obstructive symptoms. No discharge. No pain. No significant abnormal bleeding. MUSCULOSKELETAL: No musculoskeletal pain. No joint swelling. NEUROLOGICAL: No headache. No neck pain. No syncope. No seizures. No dizziness. PSYCHIATRIC: Not anxious. No depression. No suicidal thoughts. No homicidal thoughts. SKIN: No rash. No lesions. No wounds. ENDOCRINE: No unexplained weight loss. No weight gain. HEMATOLOGIC/LYMPHATIC: No anemia. No purpura. No petechiae. No prolonged or excessive bleeding. No palpable lymph nodes. MEDICATIONS: No medications reported. Drinks red wine instead of taking medications. ALLERGIES: CEFDINAR PAST MEDICAL HISTORY: History of diverticulitis CKD PAST SURGICAL HISTORY: SAIDA Hemorrhoidectomy Cataract SOCIAL/PERSONAL/FAMILY HISTORY: Nonsmoker. Alcohol: Red wine. . PHYSICAL EXAMINATION: GENERAL: The patient is awake, alert and oriented times three. She is hard of hearing. VITAL SIGNS: Pulse 109, BP 131/72, temperature 98.5, 02 sat 97% on 2L. Weight 138. HEENT: Head normocephalic, atraumatic. Eyes: Extraocular muscles are intact. Pupils are equal, round and reactive to light and accommodation. Ears: No lesions. Nose appeared normal. Throat: No exudate or erythema. NECK: Supple. No JVD, no carotid bruit. No lymphadenopathy or thyromegaly. LUNGS: Decreased breath sounds with mild wheeze. Percussion note normal. Chest symmetrical. HEART: S1, S2, no S3. No murmurs. No cyanosis or clubbing. No ascites. Pulses: Dorsalis pedis and posterior tibial pulses +1 to +2 bilaterally. ABDOMEN: Soft. Nontender. Bowel sounds active. No CVA tenderness. No mass felt. EXTREMITIES: No edema. Full range of motion of all extremities, equal. NEUROLOGIC: No focal deficit. Cranial nerves II through XII are grossly intact. No headache, no double vision or headache. SKIN: Not dry. Intact. Turgor - normal. LYMPHATIC: No palpable lymph nodes/no lymphedema. MUSCULOSKELETAL: Normal joints with no swelling. Muscle tone is normal. LABS/X-RAYS: WBCs 14.93, hemoglobin 11.4, platelets 238, hematocrit 33.9. Sodium 131.5, chloride 100.4, BUN 16.5, K+ 3.74, c02 23.1, creatinine 0.85. Pro-BNP 1230.000. RA ABGs 93% sat, pH 7.451, pc02 30.9, p02 62, HC03 21.5. ER EKG tachycardia with PVCs left hilar region. Chest CT consolidation right middle lobe with air bronchospasms. Partially evaluated ground glass nodularity in both lung bases and left hilar region. ASSESSMENT: 1. ACUTE PNEUMONITIS/BRONCHITIS 2. SINUS TACHYCARDIA 3. HISTORY OF CKD. RECOMMENDATIONS: 1. Echocardiogram to evaluate LV function. 2. Decadron 1 mL IM 04/22 and 04/23. 3. Xopenex nebs. 4. Sinus tachycardia is from nebs/acute pneumonitis. Thank you for the referral, will follow. [facility] HOSPITALSaravanan
--- NOTE | 2019-04-24 13:04 | ECHO2D ---
Date of Exam: 04/23/19 Ordering Physician: DR. REHAN DODD Room #: 116 Reason for Echo: HX A-FIB, CARDIAC ARRHYTHMIA, DIZZINESS, SOB, EVALUATE LV FUNCTION M-Mode Normal Adult Results LV Dimensions Normal Adult Results AoV Opening excursions >1.6 >1.6 LVEDD-base- 3.5-5.8 5.0 Ao root dimensions 2.0-3.7 3.2 LVESD-base- 3.1-4.6 L. Atrium dimensions 1.9-3.8 3.8 Post. Wall thickness 0.8-1.1 1.1 IV septum (thickness) 0.7-1.2 1.1 Post. Wall excursion 0.72-1.3 NORMAL Septal motion NORMAL Systolic motion R. Ventricular cavity 1.5-2.0 NORMAL LVEF 60% 49% Paradoxical septal wall motion NORMAL 2-D : 2-D M Mode Echocardiogram was performed using apical four chamber and left parasternal long and short axis views. Mitral, tricuspid and aortic valves appear to be normal. Contractility of the left ventricle seems to be normal, so is the cavity size. Left atrial cavity size and aortic root appear to be normal. There is no pericardial effusion. There is no thrombus noted in the left ventricle or left atrial cavity. No mitral valve prolapse noted. M-MODE: MV: NORMAL AV: NORMAL TV: NORMAL PV: CHAMBER SIZE: NORMAL WALL MOTION: NORMAL PERICARDIUM: NORMAL INTERPRETATION: 1. NORMAL 2 "D" "M" MODE ECHO MTDD
--- NOTE | 2019-04-24 15:52 | CT ---
Exam: CT of the brain without intravenous contrast. Comparison: 02/06/2019. Reason for exam: Mental status change. FINDINGS: No acute intracranial hemorrhage, mass effect, ventricular dilatation, or territorial infa rction. Parenchymal changes seen consistent with chronic microvascular disease and age related atrop hy. Intracranial structures appear midline. No depressed calvarial fracture is seen on this exam. No discrete air fluid levels. Impression: 1. No acute intracranial findings. 2. Parenchymal change consistent with chronic microvascular disease and age related atrophy
[2019-04-25] MEDS: MUCINEX PO SCH ×2 (09:23→21:05)
[2019-04-25] MEDS: DOXYCYCLINE HYCLATE PO SCH (09:23)
[2019-04-25] MEDS: LOVENOX SUBCUT SCH (09:23)
--- NOTE | 2019-04-25 15:52 | DI ---
EXAM: Chest two views HISTORY: Shortness of breath, cough COMPARISON: 07/03/2014., 04/21/2019 CT TECHNIQUE: Two views of the chest were performed FINDINGS: Similar patchy opacities in the left lower lobe and right lower lobe consolidation along t he fissure. No pneumothorax or pleural effusion. Stable cardiomediastinal contour. There are no acu te abnormalities of the bones. IMPRESSION: Similar bilateral lower lobe pneumonia compared to CT from 04/21/2019.
[2019-04-25] MEDS: DOXY-100 100 MG in SODIUM CHLORIDE 100 ML IV SCH (21:16)
[2019-04-26] MEDS: MUCINEX PO SCH ×2 (09:02→20:48)
[2019-04-26] MEDS: LOVENOX SUBCUT SCH (09:02)
[2019-04-26] MEDS: DOXY-100 100 MG in SODIUM CHLORIDE 100 ML IV SCH ×2 (09:02→20:48)
[2019-04-26] MEDS: COREG PO SCH ×2 (11:47→16:39)
[2019-04-27] MEDS: MUCINEX PO SCH ×2 (08:13→20:24)
[2019-04-27] MEDS: COREG PO SCH ×2 (08:13→16:32)
[2019-04-27] MEDS: LOVENOX SUBCUT SCH (08:13)
[2019-04-27] MEDS: DOXY-100 100 MG in SODIUM CHLORIDE 100 ML IV SCH ×2 (08:13→20:24)
[2019-04-28] MEDS: DOXY-100 100 MG in SODIUM CHLORIDE 100 ML IV SCH (10:05)
[2019-04-28] MEDS: MUCINEX PO SCH ×2 (10:08→20:57)
[2019-04-28] MEDS: COREG PO SCH ×2 (10:08→16:48)
[2019-04-28] MEDS: LOVENOX SUBCUT SCH (10:09)
--- NOTE | 2019-04-28 11:24 | PN ---
DATE OF SERVICE: 04/26/19 SUBJECTIVE: The patient is alert this morning, cheerful. She claims to be doing better. She is no longer confused. Lungs again still have coarse breath sounds with no wheezing. Heart is audible and slightly tachycardic. Vital signs 04/26/19 at 10 a.m.: Pulse 108, blood pressure 133/70, respiratory rate 18, oxygen saturation 99 on room air. It was previously 97 in the diversity manager hours of 04/26/19. Chest x-ray done 04/25/19 no significant improvement but no progression of the densities in the lung yeung. Urine culture did show gram positive cocci less than 50,000 and less than 30,000 colonies. 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 This patient had reaction to quinalones, confusion and bacteria is indeed susceptible to Cipro as well as Levofloxacin. It is also sensitive to Penicillin as well as Linezolid. The patient was allergic although mild to Cefdinar. The patient is continued on her antibiotics. The patient clinically is improved. MTDD
--- NOTE | 2019-04-28 11:48 | PN ---
DATE OF SERVICE: 04/25/19 SUBJECTIVE: The patient today is alert and no longer confused. She is not dyspneic or She did recognize me and was cheerful. She is not dyspneic or tachypneic and no cyanosis. OBJECTIVE: V/S: Blood pressure at 6 p.m. Blood pressure 146/80, respiratory rate 18. The patient is on room air. No pulse rate done at 6 p.m. CHEST: Chest expanding well, is symmetrical. LUNGS: Breath sounds are heard on both sides with coarse breath sounds and no wheezing. HEART: Audible and slightly tachycardic. ABDOMEN: Soft, nontender. LOWER EXTREMITIES: No significant edema. ASSESSMENT: Confusion, resolved, mostly likely due to medication either quinolones vs Tussionex. MTDD
--- NOTE | 2019-04-28 11:56 | PN ---
DATE OF SERVICE: 04/22/19 SUBJECTIVE: The patient today is alert, coughing less and claims to be feeling somewhat better. She still has a very poor appetite. OBJECTIVE: V/S: Today at 6 p.m., BP 124/77, pulse 111, respiratory rate 18, temperature 97.7, oxygen saturation 91. LUNGS: Still has rales on both lung yeung but seems to be less. HEART: Audible, slightly irregular but tachycardic. PLAN: This patient was seen by the department administrator on consultation. He ordered Decadron 1 cc (4 mg) once today and another one in the morning. Also, had a Xopenex per nebulizer four times a day. This might have contributed to the tachycardia. She is now afebrile. Will try to give her as much oral calories. She should drink Ensure at least three times a day or Boost. CONDITION: Stable and seemingly improved. The patient had remained afebrile since admission. ANDREIA
--- NOTE | 2019-04-28 13:14 | PN ---
DATE OF SERVICE: 04/23/19 SUBJECTIVE: The patient earlier was found to be having confusion as well as visual hallucinations. I walked into the room about 6 p.m. this evening and the patient had relatives that had visited, her son Solitario Singh and his and the rest of the relatives that I do not know. She was eating and was in front of her food. I told them that I would come back after she is done eating. The patient tried to walk out of the hospital and the nurses did convince her to go back to the room. She wanted to see me and I did go back to the room and saw her. She was insisting on trying to go home. I told her that she is in the hospital because she has pneumonia. She asked me if I would walk with her to her house. I told her that it is quite a distance to walk and more so it is at night and a little bit chilly now. I told her that I would try to call her son, Solitario. I tried to call Ms. Silvia Osman and I left my number and a message. I had not heard from her and I finally got the phone number of Mr. Solitario Singh and I would proceed to call him. She probably needed a relative to stay with her tonight. I changed the medication from Avelox to Doxycycline. I don't know if the confusion was because of the change in location or medication was with Avelox and/or just the infection sometimes that gives encephalopathy. This patient had a pneumonia and had fever on admission. This patient had been afebrile now. Her pulse at 7:58 p.m. was 121 and she was moving around was probably why it is elevated from previous. Respiratory rate is 22. Will try to give her Haldol 0.5 mg to see if this would improve. Except for the admssion to the emergency room 101.7. The cough syrup that was given also was discontinued since that might have also initiated hallucination. The Doxycycline will not be started tonight and it will begin in the morning. He had the Avelox during the daytime which would last til morning or tomorrow. No Doxycycline tonight but Doxycycline 100 mg intravenously q.12hr will begin tomorrow. MTDD
--- NOTE | 2019-04-28 13:14 | CONS ---
DATE OF SERVICE: 04/27/19 CONSULT FOLLOWUP SUBJECTIVE: 89 year old white female seen on consultation. REVIEW OF SYSTEMS: CONSTITUTIONAL: No night sweats. No fatigue, malaise, lethargy. No fever or chills. Doesn't seem to be in distress at all. HEENT: Eyes: No visual changes. No eye pain. No eye discharge. ENT: No runny nose. No epistaxis. No sinus pain. No sore throat. No odynophagia. No ear pain. No congestion. RESPIRATORY: Mild congested cough, no congestion. No hemoptysis. CARDIOVASCULAR: No angina symptoms. No CHF symptoms. No atypical chest pain for CAD. No palpitations. No shortness of breath. GASTROINTESTINAL: No abdominal pain. No nausea or vomiting. No diarrhea or constipation. No hematemesis. No hematochezia. GENITOURINARY: No urgency. No frequency. No dysuria. No hematuria. No obstructive symptoms. No discharge. No pain. No significant abnormal bleeding. MUSCULOSKELETAL: No musculoskeletal pain. No joint swelling. No arthritis. NEUROLOGICAL: No headache. No neck pain. No syncope. No seizures. No dizziness. Pleasant confused. She is talking to the guest in the room. PSYCHIATRIC: Not anxious. No depression. No suicidal thoughts. No homicidal thoughts. SKIN: No rash. No lesions. No wounds. ENDOCRINE: No unexplained weight loss. No weight gain. HEMATOLOGIC/LYMPHATIC: No anemia. No purpura. No petechiae. No prolonged or excessive bleeding. No palpable lymph nodes. PHYSICAL EXAMINATION: VITAL SIGNS: Temperature 97.8, pulse 80, respiratory rate 14, blood pressure 120/70 and pulse ox 97%. HEENT: Head normocephalic, atraumatic. Eyes: Extraocular muscles are intact. Pupils are equal, round and reactive to light and accommodation. Ears: No lesions. Nose appeared normal. Throat: No exudate or erythema. NECK: Supple. No JVD, no carotid bruit. No lymphadenopathy or thyromegaly. LUNGS: Decreased breath sounds but clear to auscultation. Percussion note normal. Chest symmetrical. HEART: S1, S2, no S3. No murmurs. No cyanosis or clubbing. No ascites. Pulses: Dorsalis pedis and posterior tibial pulses +1 to +2 bilaterally. ABDOMEN: Soft. Nontender. Bowel sounds active. No CVA tenderness. No mass felt. EXTREMITIES: No edema. Full range of motion of all extremities, equal. NEUROLOGIC: No focal deficit. Cranial nerves II through XII are grossly intact. No headache, no double vision or headache. SKIN: Not dry. Intact. Turgor - normal. LYMPHATIC: No palpable lymph nodes/no lymphedema. MUSCULOSKELETAL: Normal joints with no swelling. Muscle tone is normal. ASSESSMENT: 1. EKG changes suggestive of inferolateral ischemia but the patient's symptoms clinical presentation doesn't go along with it. The patient's Troponin, CK_MB negative. Today's EKG shows sinus rhythm with T-wave inversion in the precordial leads. The patient's heart rate is slow 85 per minutes with addition of Coreg CONDITION: Stable This patient, I introduced myself said that she is seeing me for the first time. In fact I had seen this patient four times. ANDREIA
[2019-04-29 05:07] VITALS: BP 117/70; TEMP 98.1
[2019-04-29] MEDS: COREG PO SCH (08:03)
[2019-04-29] MEDS: LOVENOX SUBCUT SCH (08:04)
[2019-04-29] MEDS: MUCINEX PO SCH (08:04)
--- NOTE | 2019-04-29 14:23 | CONS ---
DATE OF SERVICE: 04/28/19 CONSULT FOLLOWUP SUBJECTIVE: The patient is seen on consultation with abnormal EKG with no symptoms of CHF or CAD. REVIEW OF SYSTEMS: CONSTITUTIONAL: No night sweats. No fatigue, malaise, lethargy. No fever or chills. The patient is confused but pleasantly confused. Up and about. HEENT: Eyes: No visual changes. No eye pain. No eye discharge. ENT: No runny nose. No epistaxis. No sinus pain. No sore throat. No odynophagia. No ear pain. No congestion. RESPIRATORY: Coughing much less, no congestion. No hemoptysis. CARDIOVASCULAR: No angina symptoms. No CHF symptoms. No atypical chest pain for CAD. No palpitations. No shortness of breath. GASTROINTESTINAL: No abdominal pain. No nausea or vomiting. No diarrhea or constipation. No hematemesis. No hematochezia. GENITOURINARY: No urgency. No frequency. No dysuria. No hematuria. No obstructive symptoms. No discharge. No pain. No significant abnormal bleeding. MUSCULOSKELETAL: No musculoskeletal pain. No joint swelling. No arthritis. NEUROLOGICAL: No headache. No neck pain. No syncope. No seizures. No dizziness. PSYCHIATRIC: Not anxious. No depression. No suicidal thoughts. No homicidal thoughts. SKIN: No rash. No lesions. No wounds. ENDOCRINE: No unexplained weight loss. No weight gain. HEMATOLOGIC/LYMPHATIC: No anemia. No purpura. No petechiae. No prolonged or excessive bleeding. No palpable lymph nodes. PHYSICAL EXAMINATION: VITAL SIGNS: Temperature 97.8, pulse 85, respiratory rate 18, blood pressure 132/74 and pulse ox 95%. HEENT: Head normocephalic, atraumatic. Eyes: Extraocular muscles are intact. Pupils are equal, round and reactive to light and accommodation. Ears: No lesions. Nose appeared normal. Throat: No exudate or erythema. NECK: Supple. No JVD, no carotid bruit. No lymphadenopathy or thyromegaly. LUNGS: Decreased breath sounds but clear to auscultation. Percussion note normal. Chest symmetrical. HEART: S1, S2, no S3. No murmurs. No cyanosis or clubbing. No ascites. Pulses: Dorsalis pedis and posterior tibial pulses +1 to +2 bilaterally. ABDOMEN: Soft. Nontender. Bowel sounds active. No CVA tenderness. No mass felt. EXTREMITIES: No edema. Full range of motion of all extremities, equal. NEUROLOGIC: No focal deficit. Cranial nerves II through XII are grossly intact. No headache, no double vision or headache. SKIN: Not dry. Intact. Turgor - normal. LYMPHATIC: No palpable lymph nodes/no lymphedema. MUSCULOSKELETAL: Normal joints with no swelling. Muscle tone is normal. ASSESSMENT: 1. Acute bronchitis/pneumonitis 2. Dementia 3. Abnormal EKG with inferolateral ischemia. No symptoms RECOMMENDATIONS: 1. Continue to give the patient Coreg. The patient's pulse has been brought under 90 with small dose of Coreg, we will continue that. 2. No symptoms of CHF or coronary insufficiency 3. The patient is 89, we will likely leave her alone for now. Sign out of the patient's care. ANDREIA
--- NOTE | 2019-04-29 14:26 | CONS ---
Initial consult: Level 5 The patient was seen 4 times after that and all of them were intermediate. MTDD
--- NOTE | 2019-04-29 14:28 | CONS ---
DATE OF SERVICE: 04/26/19 CONSULT FOLLOWUP SUBJECTIVE: 89-year-old White female seen on consultation because of sinus tachycardia and pneumonia. The patient doesn't have any symptoms of CHF or coronary insufficiency. Cough is much less. Her bronchitis seems to be resolving. The patient's pneumonitis seems to be resolving. REVIEW OF SYSTEMS: CONSTITUTIONAL: No night sweats. No fatigue, malaise, lethargy. No fever or chills. HEENT: Eyes: No visual changes. No eye pain. No eye discharge. ENT: No runny nose. No epistaxis. No sinus pain. No sore throat. No odynophagia. No ear pain. No congestion. RESPIRATORY: Mild cough, no congestion. No hemoptysis. CARDIOVASCULAR: No angina symptoms. No CHF symptoms. No atypical chest pain for CAD. No palpitations. No shortness of breath. GASTROINTESTINAL: No abdominal pain. No nausea or vomiting. No diarrhea or constipation. No hematemesis. No hematochezia. GENITOURINARY: No urgency. No frequency. No dysuria. No hematuria. No obstructive symptoms. No discharge. No pain. No significant abnormal bleeding. MUSCULOSKELETAL: No musculoskeletal pain. No joint swelling. No arthritis. NEUROLOGICAL: No headache. No neck pain. No syncope. No seizures. No dizziness. PSYCHIATRIC: Not anxious. No depression. No suicidal thoughts. No homicidal thoughts. SKIN: No rash. No lesions. No wounds. ENDOCRINE: No unexplained weight loss. No weight gain. HEMATOLOGIC/LYMPHATIC: No anemia. No purpura. No petechiae. No prolonged or excessive bleeding. No palpable lymph nodes. PHYSICAL EXAMINATION: VITAL SIGNS: Temperature 98.6, pulse 100, respiratory rate 18, BP 133/79, pulse ox 99%. HEENT: Head normocephalic, atraumatic. Eyes: Extraocular muscles are intact. Pupils are equal, round and reactive to light and accommodation. Ears: No lesions. Nose appeared normal. Throat: No exudate or erythema. NECK: Supple. No JVD, no carotid bruit. No lymphadenopathy or thyromegaly. LUNGS: Decreased breath sounds but clear to auscultation. Percussion note normal. Chest symmetrical. HEART: S1, S2, no S3. No murmurs. No cyanosis or clubbing. No ascites. Pulses: Dorsalis pedis and posterior tibial pulses +1 to +2 bilaterally. ABDOMEN: Soft. Nontender. Bowel sounds active. No CVA tenderness. No mass felt. EXTREMITIES: No edema. Full range of motion of all extremities, equal. NEUROLOGIC: No focal deficit. Cranial nerves II through XII are grossly intact. No headache, no double vision or headache. SKIN: Not dry. Intact. Turgor - normal. LYMPHATIC: No palpable lymph nodes/no lymphedema. MUSCULOSKELETAL: Normal joints with no swelling. Muscle tone is normal. LABS: Hemoglobin 11.5, hematocrit 35, WBC 13,000, normal differential. Creatinine 0.9, BUN 18, potassium 4.1. ASSESSMENT: The patient had an EKG done this morning which showed T wave inversion in the precordial area with questionable elevation in V2. These findings are new as compared to the EKG done on 04/21/19. It is very likely that the patient had faster heart rate on 04/21/19 which may have masked the ST-T wave change. The patient is practically asymptomatic. She is an 89-year-old, doesn't have any symptoms of CHF, coronary insufficiency. RECOMMENDATIONS: 1. Will do troponin. 2. CK-MB. 3. Coreg 3.25 twice a day to be added to slow down the sinus tachycardia. CONDITION: Stable. Will follow. MTDD
--- NOTE | 2019-05-02 08:22 | PN ---
DATE OF SERVICE: 04/23/19 SUBJECTIVE: Today she was a bit confused when I came in the room. She states, "I am seeing pictures". On exam her lungs were diminished. Heart regular rate and rhythm. Again she was a bit confused. I am unsure if this is new for her. I will discuss this with Dr. Dao. On 04/23/19 her white count was 14.36, hemoglobin 10.6, hematocrit 33.1. Her platelet count 261. Potassium normal at 4.42, chloride 107.8, BUN 17.2, creatinine 0.81. There were no new diagnostics done today. On 04/23/19 her temperature 98.6, pulse rate 102, blood pressure 135/77, respiratory rate 18, 02 sat 98% on 2L/NC. She has been on Avelox intravenously. She has also been on nebulizer treatment. She seems to be improving. Further orders and recommendations per Dr. Dao. [facility]
--- NOTE | 2019-05-02 08:29 | PN ---
DATE OF SERVICE: 04/24/19 SUBJECTIVE: Today her vital signs are stable. Her blood pressure is 130/77, pulse 92, respirations 20, temperature 98.2, 02 sat 98% on room air. Echocardiogram results are available for review. It was a normal 2D 'M' mode echocardiogram. There are no lab results for the last 24 hours. She was asleep at the time of evaluation. On 04/23/19 her white count is still 14.36. She did not have a CBC completed today. She seems to be resting quietly in no acute distress. Her family is at the bedside. She continues on Mucinex, IV fluids, Xopenex nebs. She is currently on Doxycycline p.o. and she was started on Lovenox subcutaneously. MTDD
--- NOTE | 2019-05-02 08:36 | PN ---
DATE OF SERVICE: 04/28/19 SUBJECTIVE: Today she does report that she is feeling better. She is currently being treated for pneumonia. White count today has decreased down to 9.10. Hemoglobin stable at 10.5, hematocrit 32.3, platelet count 337. Chemistry panel is normal. OBJECTIVE: On exam her lungs were clear but diminished. Heart regular rate and rhythm. She does complain of some swelling to her left antecubital area. She does report an IV had infiltrated to that area. Temperature 97.8, pulse rate 85, blood pressure 132/74, respiratory rate 18, 02 sat 95% on room air. PLAN: Discharge home soon, possibly today but maybe tomorrow. She does feel like she is feeling much better enough to prepare to go home. Her most recent chest x-ray was completed on 04/25. It did show similar bilateral lower lobe pneumonia compared to the CT from 04/21/19. She has been on Doxycycline intravenously. Again, she continues to feel better. Lungs are diminished but clear. Plan is to go home very soon. ANDREIA
--- NOTE | 2019-05-02 09:34 | DS ---
DATE OF SERVICE: 04/29/19 FINAL DIAGNOSES: 1. RIGHT MIDDLE LOBE PNEUMONIA. 2. CARDIAC ARRHYTHMIA. BRIEF HISTORY OF PRESENT ILLNESS/HOSPITAL COURSE: The patient presented with several week episodes of coughing that had worsened over the past several days. It prompted her to go to the Urgent Care at [facility]. She had a chest x-ray completed that did show pneumonitis in the right middle lobe. She also has had some tachycardia with a rate of 115 to 118 beats/min. Dr. Arenas did recommend the patient to be seen at the Emergency Department. The patient and family elected to come to [facility]. The patient did come through the Emergency Department to be examined and evaluated. The patient had no other testing done at the Urgent Care except for chest x-ray showing right middle lobe pneumonia. The patient also had some tachycardia. The patient had a noncontrast CT in the Emergency Department that did confirm the right middle lobe pneumonia and other findings which need to be followed up with. The patient's arterial blood gases revealed an 02 saturation of 93, pH 7.451, pc02 of 30.9, p02 62 and HC03 of 21, total c02 of 22, base excess of -2 and an FI02 of 21%. Lactic acid was normal. Pro-BNP was 1,230, slightly above previous number of 997. The patient was given 500 mg of Levofloxacin in the Emergency Department. According to the chart, the patient had some reaction to Cefdinir. The patient did have a fever of 101.7 on admission with a pulse rate of 122. Decision was made to admit the patient with the diagnosis of right middle lobe pneumonia. She did continue on antibiotics. She will resume antibiotics at discharge of Doxycycline and will continue those for an additional several days. Dr. Dao has written that prescription and has given that to the nurse at discharge. Dr. Day did see and evaluate the patient while the patient was in the hospital. A head CT was performed on 04/24 which showed nothing acute. Repeat chest x-ray was completed on 04/25 and it did show similar bilateral lower lobe pneumonia compared to the CT of the chest on 04/21/19. DISCHARGE MEDICATIONS: The patient would ultimately stop the Coreg that was started. She will resume her regular home medications. Doxycycline prescription was written by Dr. Dao at discharge. The rest of the meds will be resumed. PHYSICAL EXAMINATION: LUNGS: On exam today her lungs were clear. HEART: Regular rate and rhythm. VITAL SIGNS AT DISCHARGE: Her vital signs at discharge today: Temperature 98.1, pulse rate 72, blood pressure 117/70, respiratory rate 20, 02 sat 91% on room air. The patient was ready for discharge. Discharge was discussed with the daughter at his bedside. DISCHARGE DIET: As tolerated. DISCHARGE ACTIVITY: She does use a walker to ambulate. Fall precautions. DISCHARGE INSTRUCTIONS: 1. She is to followup with Dr. Dao next week. 2. She was given 12 tablets of Doxycycline to take one tablet twice a day, two hours after breakfast, two hours after supper. 3. Further orders and recommendations per Dr. Dao. 4. Further lab and diagnostic testing will be discussed at the followup appointment. 5. Dr. Dao did discuss staying with the daughter and plans to repeat the CT scan the next few months. TIME SPENT: GREATER THAN 30 MINUTES MTDD
--- NOTE | 2019-05-02 10:07 | PN ---
DATE OF SERVICE: 04/27/19 SUBJECTIVE/OBJECTIVE: The patient is alert, oriented. She is not dyspneic or tachypneic but good color. Lungs have no rales or wheezing. Heart is audible, slightly tachycardic. Abdomen nontender. Legs no significant edema. PLAN: If the patient continues to do well then she will be discharged tomorrow. Vital signs at 2 p.m. 04/27/19 temperature 97.9 oral, pulse 92, blood pressure 108/61, respiratory rate 18, oxygen saturation 93 at room air. The patient is receiving Doxycycline 100 mg intravenously q.12hr. This patient's repeat CT chest did not show any improvement. This patient however had remained stable with no further fever. MTDD
--- NOTE | 2019-05-02 11:02 | PN ---
DATE OF SERVICE: 04/28/19 SUBJECTIVE/OBJECTIVE: The patient, this mid morning, did not feel very well. I asked her why and she told me that she was not able to sleep through the night because of the alarm coming from the intravenous fluids, Doxycycline. She did look tired. She is not dyspneic nor tachypneic but she is in a semi-recumbent position 45 degrees. Lungs are still without any rales or wheezing. Heart is audible and slightly tachycardic. The vital signs at 5:06 this morning, since there were no further vital signs after that, showed a blood pressure 132/74, respiratory rate 18, oxygen saturation 95 on room air. Pulse rate was 85. Temperature 97.8 orally. WBC is now normal at 9,100, RBC 3.56, hemoglobin 10.5, hematocrit 32.3, MCV 90.7, MCH 29.5. Platelet count 337,000. Electrolytes normal. C02 normal 26.4. BUN normal 15.5, creatinine 0.85, EGFR 63, blood sugar 105. The rest of the chemistries are normal. Total protein slightly below normal 5.97, albumin 3.09, globulin 2.88, ratio 1.07. Sputum light to moderate growth with normal jose raul. I have to modify the schedule so this patient will not have the IV drip during the late morning hours of the evening or angio technologist. MTDD
== END 2019-04-29 14:00 | disposition home or self-care (01) | DRG 195 ==
LOC: ED 12:52 → MEDSURG B 17:33
PROVIDERS: ADMIT General Practice; ATTEND General Practice
DX: R41.0 Disorientation, unspecified; I49.9 Cardiac arrhythmia, unspecified; R53.81 Other malaise; R63.0 Anorexia; R53.1 Weakness; J18.9 Pneumonia, unspecified organism; R05 Cough